=== PATIENT | female | born 1940 | race Caucasian/White ===

== ENCOUNTER 2017-06-10 09:40 | Inpatient (IN) | payer MEDICARE, OTHER ==
[2017-06-09 11:34] LABS: BASOPHILS # (AUTO) 0.1 X10'3 (0-0.2); BASOPHILS % (AUTO) 0.8 % (0-1); EOSINOPHILS # (AUTO) 0.2 X10'3 (0-0.9); EOSINOPHILS % (AUTO) 3.7 % (0-6); LYMPHOCYTES # (AUTO) 1.9 X10'3 (1.1-4.8); LYMPHOCYTES % (AUTO) 30.5 % (21-51); MEAN CORPUSCULAR HEMOGLOBIN 30.2 PG (27.0-31.0); MEAN CORPUSCULAR HGB CONC 33.5 % (33.0-36.5); MEAN CORPUSCULAR VOLUME 90.1 FL (78-98); MEAN PLATELET VOLUME 8.4 FL (7.4-10.4); MONOCYTES # (AUTO) 0.5 X10'3 (0-0.9); MONOCYTES % (AUTO) 7.4 % (2-12); NEUTROPHILS # (AUTO) 3.6 X10'3 (1.8-7.7); NEUTROPHILS % (AUTO) 57.6 % (42-75); PRE OP HEMATOCRIT 37.4 % (35.0-45.0); PRE OP HEMOGLOBIN 12.5 g/dL (12.0-16.0); PRE OP PLATELET COUNT 255 X10'3 (140-440); RED BLOOD COUNT 4.15 X10'6 (4.20-5.60); RED CELL DISTRIBUTION WIDTH 13.3 % (11.5-14.5)
[2017-06-09 11:52] LABS: ALBUMIN/GLOBULIN RATIO 1.4 (1.1-1.5); ALKALINE PHOSPHATASE 71 IU/L (46-116); BLOOD UREA NITROGEN 27 MG/DL (7-18); CALCIUM 9.5 MG/DL (8.5-10.1); CHLORIDE 105 MMOL/L (99-107); PRE OP ALT 20 U/L (30-65); PRE OP ANION GAP 12 (8-16); PRE OP AST 22 U/L (10-37); PRE OP BILIRUB, TOTAL 0.4 MG/DL (0.0-1.0); PRE OP GLUCOSE 107 MG/DL (70-104); PRE OP POTASSIUM 4.1 MMOL/L (3.4-5.1); PRE OP SODIUM 143 MMOL/L (135-145); TOTAL PROTEIN 6.8 G/DL (6.4-8.2); eGFR 54 ML/MIN
[2017-06-09 12:11] LABS: HEMOGLOBIN A1C 6.1 % (4.5-6.2)
[~2017-06-10] VITALS: Ht 157.5 cm; Wt 54.2 kg
[2017-06-10] VITALS (17 sets, daily range): BP systolic 111–141; BP diastolic 62–74
[~2017-06-10 09:40] MED LIST: CELE-193 PO; CHOL2000 PO; CYAN25006 SL; DICY10CA88 PO; DIPH-522 PO; FERR325T35 PO; LAMO100T2 PO; METF500T PO; MULT-38 PO; PANT-47 PO; SUCR1TAB PO; TRAZ-143 PO; VANCOMYCIN INJ 1000 MG in NORMAL SALINE 250ml IV.SOLN IV ONE; VENL-190 PO; ceFAZolin 2gm in dextrose, iso 100 ML IV ONE; famotidine 20mg tablet PO ONE; sevoflurane 250ml liquid IH ONE
[2017-06-10] MEDS ORDERED: LIDOcaine 1% (10mg/ml) 2ml vial ONE (11:42)
[2017-06-10] MEDS: ringers solution, lacted 1,000 ML IV SCH ×3 (11:50→17:12)
[2017-06-10] MEDS ORDERED: ketorolac trometh. 30mg/ml inj. ONE (13:03)
[2017-06-10] MEDS ORDERED: ROPIVAcaine 0.5% (5mg/ml) 30ml vial ONE ×2 (13:03→13:30)
[2017-06-10] MEDS ORDERED: vancomycin 1,000mg inj ONE (13:03)
[2017-06-10] MEDS ORDERED: fentaNYL/PF 50MCG/1 ML 2ML syringe ONE (13:32)
[2017-06-10] MEDS ORDERED: midazolam 2 mg/2 ml injection ONE (13:33)
[2017-06-10] MEDS ORDERED: propofol inj 20 ML IV ONE (13:38)
[2017-06-10] MEDS ORDERED: labetalol 5mg/ml 20ml inj. IV PRN (14:35)
[2017-06-10] MEDS ORDERED: ondansetron/PF 4mg/2ml inj IV PRN ×2 (14:35→15:45)
[2017-06-10] MEDS ORDERED: proCHLORperazine 10 MG/2 ml inj IV PRN (14:35)
[2017-06-10] MEDS ORDERED: meperidine/PF 25mg/ml syringe IV PRN ×3 (14:35)
[2017-06-10] MEDS ORDERED: ringers solution, lacted 1,000 ML IV SCH (14:35)
[2017-06-10] MEDS ORDERED: oxyCODONE IR 5mg (immed. release) tablet PO PRN (15:45)
[2017-06-10] MEDS ORDERED: bisacodyl 10mg suppository rectal RC PRN (15:45)
[2017-06-10] MEDS ORDERED: diphenoxylate/atropine tablet (Lomotil) PO PRN (15:45)
[2017-06-10] MEDS ORDERED: diphenhydrAMINE 25mg capsule PO PRN ×2 (15:45)
[2017-06-10] MEDS ORDERED: dicyclomine 10 MG capsule PO PRN (15:45)
[2017-06-10] MEDS ORDERED: magnesium hydroxide 30ml (MOM) UD suspension PO PRN (15:45)
[2017-06-10] MEDS ORDERED: HYDROmorphone 1 mg/ml syringe IV PRN ×2 (15:45)
[2017-06-10] MEDS ORDERED: acetaminophen 325mg tablet PO PRN (15:45)
[2017-06-10 16:04] LABS: APPEARANCE,SYNOVIAL FLUID CLOUDY; COLOR,SYNOVIAL FLUID OTHER; SYN RBC 11075 /CU MM (0); SYN WBC 118 /CU MM (0-200)
[2017-06-10] MEDS: cefazolin 1gm/NS 100mL 100 ML IV SCH ×2 (17:09→23:30)
[2017-06-10] MEDS: potassium cl 20mEq in 1/2 NS 1,000 ML IV SCH ×2 (17:09→23:42)
[2017-06-10] MEDS: oxyCODONE IR 5mg (immed. release) tablet PO PRN ×2 (17:18→22:39)
[2017-06-10] MEDS ORDERED: TRANEXAMIC ACID IV ONE (18:45)
[2017-06-10] MEDS ORDERED: NORMAL SALINE IV ONE (18:45)
[2017-06-10] MEDS: metFORMIN 500mg tablet PO SCH (19:52)
[2017-06-10] MEDS: acetaminophen 325mg tablet PO SCH (19:52)
[2017-06-10] MEDS: ketorolac tromethamine 15mg/ml inj. IV SCH (19:53)
[2017-06-10] MEDS ORDERED: vancomycin/NS 1 GM ADD-VANTAGE 250 ML IV SCH (20:00)
[2017-06-10] MEDS ORDERED: celeCOXIB 100mg capsule PO SCH (20:00)
[2017-06-10] MEDS: gabapentin 300mg capsule PO SCH (22:39)
[2017-06-10] MEDS: lamoTRIgine 100mg tablet PO SCH (22:39)
[2017-06-10] MEDS: traZODone 50mg tablet PO SCH (22:39)
[2017-06-10] MEDS: sennosides 8.6mg tablet PO SCH (22:40)
[2017-06-11] MEDS: ketorolac tromethamine 15mg/ml inj. IV SCH ×4 (01:44→19:50)
[2017-06-11] MEDS: acetaminophen 325mg tablet PO SCH ×4 (01:46→19:51)
[2017-06-11 02:00] VITALS: BP 119/65
[2017-06-11] MEDS: potassium cl 20mEq in 1/2 NS 1,000 ML IV SCH ×3 (04:32→23:42)
[2017-06-11] MEDS: oxyCODONE IR 5mg (immed. release) tablet PO PRN ×3 (05:47→15:53)
[2017-06-11 06:00] VITALS: BP 101/59
[2017-06-11 06:20] LABS: BASOPHILS % (AUTO) 0.5 % (0-1); EOSINOPHILS # (AUTO) 0.3 X10'3 (0-0.9); EOSINOPHILS % (AUTO) 4.7 % (0-6); HEMATOCRIT 31.2 % (35.0-45.0); HEMOGLOBIN 10.3 g/dl (12.0-16.0); LYMPHOCYTES # (AUTO) 1.8 X10'3 (1.1-4.8); LYMPHOCYTES % (AUTO) 29.6 % (21-51); MEAN CORPUSCULAR HEMOGLOBIN 30.1 PG (27.0-31.0); MEAN CORPUSCULAR VOLUME 91.3 FL (78-98); MEAN PLATELET VOLUME 8.4 FL (7.4-10.4); MONOCYTES # (AUTO) 0.4 X10'3 (0-0.9); MONOCYTES % (AUTO) 6.8 % (2-12); NEUTROPHILS # (AUTO) 3.5 X10'3 (1.8-7.7); NEUTROPHILS % (AUTO) 58.4 % (42-75); PLATELET COUNT 199 X10'3 (140-440); RED BLOOD COUNT 3.41 X10'6 (4.20-5.60); RED CELL DISTRIBUTION WIDTH 13.1 % (11.5-14.5); WHITE BLOOD COUNT 6.1 X10'3 (4.5-11.0)
[2017-06-11 06:48] LABS: ANION GAP 9 (8-16); CHLORIDE 106 MMOL/L (99-107); SODIUM 140 MMOL/L (135-145); TOTAL CARBON DIOXIDE 24.6 MMOL/L (24-32)
[2017-06-11] MEDS ORDERED: celeCOXIB 100mg capsule PO SCH (08:00)
[2017-06-11] MEDS: aspirin 325mg tablet PO SCH (08:25)
[2017-06-11] MEDS: vitamin D (cholecalciferol) 1,000 unit tablet PO SCH (08:25)
[2017-06-11] MEDS: gabapentin 300mg capsule PO SCH ×3 (08:25→19:51)
[2017-06-11] MEDS: sucralfate 1 gm tablet PO SCH (08:25)
[2017-06-11] MEDS: pantoprazole 40mg Tablet.DR PO SCH (08:25)
[2017-06-11] MEDS: metFORMIN 500mg tablet PO SCH ×2 (08:25→19:50)
[2017-06-11] MEDS: ferrous sulfate 325mg tablet PO SCH (08:25)
[2017-06-11] MEDS: multivitamins, therapeutics tablet PO SCH (08:26)
[2017-06-11] MEDS: venlafaxine XR 75mg capsule (Q24H) PO SCH (08:26)
[2017-06-11] MEDS: cyanocobalamin 500mcg tablet PO SCH ×2 (08:26→08:32)
[2017-06-11 10:23] VITALS: BP 98/48
[2017-06-11 14:00] VITALS: BP 104/58
[2017-06-11 18:00] VITALS: BP 108/58
[2017-06-11] MEDS: lamoTRIgine 100mg tablet PO SCH (19:51)
[2017-06-11] MEDS: traZODone 50mg tablet PO SCH (19:51)
[2017-06-11] MEDS: sennosides 8.6mg tablet PO SCH (19:55)
[2017-06-11 22:00] VITALS: BP 111/60
[2017-06-12] MEDS: ketorolac tromethamine 15mg/ml inj. IV SCH (01:46)
[2017-06-12] MEDS: acetaminophen 325mg tablet PO SCH ×3 (01:51→13:17)
[2017-06-12] MEDS: oxyCODONE IR 5mg (immed. release) tablet PO PRN ×4 (05:00→17:44)
[2017-06-12 06:00] VITALS: BP 125/61
[2017-06-12] MEDS: potassium cl 20mEq in 1/2 NS 1,000 ML IV SCH (06:46)
[2017-06-12 07:04] LABS: BASOPHILS % (AUTO) 0.2 % (0-1); EOSINOPHILS # (AUTO) 0.4 X10'3 (0-0.9); EOSINOPHILS % (AUTO) 6.6 % (0-6); HEMATOCRIT 30.4 % (35.0-45.0); HEMOGLOBIN 10.2 g/dl (12.0-16.0); LYMPHOCYTES % (AUTO) 17.4 % (21-51); MEAN CORPUSCULAR HEMOGLOBIN 30.5 PG (27.0-31.0); MEAN CORPUSCULAR HGB CONC 33.7 % (33.0-36.5); MEAN CORPUSCULAR VOLUME 90.4 FL (78-98); MEAN PLATELET VOLUME 8.7 FL (7.4-10.4); MONOCYTES # (AUTO) 0.4 X10'3 (0-0.9); MONOCYTES % (AUTO) 6.3 % (2-12); NEUTROPHILS # (AUTO) 3.8 X10'3 (1.8-7.7); NEUTROPHILS % (AUTO) 69.5 % (42-75); PLATELET COUNT 183 X10'3 (140-440); RED BLOOD COUNT 3.36 X10'6 (4.20-5.60); RED CELL DISTRIBUTION WIDTH 13.5 % (11.5-14.5); WHITE BLOOD COUNT 5.5 X10'3 (4.5-11.0)
[2017-06-12] MEDS: pantoprazole 40mg Tablet.DR PO SCH (08:28)
[2017-06-12] MEDS: multivitamins, therapeutics tablet PO SCH (08:28)
[2017-06-12] MEDS: metFORMIN 500mg tablet PO SCH ×2 (08:28→20:04)
[2017-06-12] MEDS: ferrous sulfate 325mg tablet PO SCH (08:28)
[2017-06-12] MEDS: venlafaxine XR 75mg capsule (Q24H) PO SCH (08:28)
[2017-06-12] MEDS: sucralfate 1 gm tablet PO SCH (08:28)
[2017-06-12] MEDS: vitamin D (cholecalciferol) 1,000 unit tablet PO SCH (08:29)
[2017-06-12] MEDS: aspirin 325mg tablet PO SCH (08:29)
[2017-06-12] MEDS: gabapentin 300mg capsule PO SCH ×3 (08:29→20:03)
[2017-06-12] MEDS: cyanocobalamin 500mcg tablet PO SCH (08:30)
[2017-06-12 11:00] VITALS: BP 122/65
[2017-06-12 18:00] VITALS: BP 142/75
[2017-06-12] MEDS: sennosides 8.6mg tablet PO SCH (19:52)
[2017-06-12] MEDS: lamoTRIgine 100mg tablet PO SCH (20:04)
[2017-06-12] MEDS: traZODone 50mg tablet PO SCH (20:05)
[2017-06-12] MEDS: celeCOXIB 100mg capsule PO SCH (20:05)
[2017-06-12 22:00] VITALS: BP 123/69
[2017-06-13] MEDS: oxyCODONE IR 5mg (immed. release) tablet PO PRN ×2 (04:37→18:44)
[2017-06-13 05:53] LABS: BASOPHILS % (AUTO) 0.5 % (0-1); EOSINOPHILS # (AUTO) 0.3 X10'3 (0-0.9); EOSINOPHILS % (AUTO) 7.2 % (0-6); HEMATOCRIT 30.2 % (35.0-45.0); HEMOGLOBIN 10.2 g/dl (12.0-16.0); LYMPHOCYTES # (AUTO) 1.1 X10'3 (1.1-4.8); MEAN CORPUSCULAR HEMOGLOBIN 30.2 PG (27.0-31.0); MEAN CORPUSCULAR HGB CONC 33.8 % (33.0-36.5); MEAN CORPUSCULAR VOLUME 89.5 FL (78-98); MEAN PLATELET VOLUME 8.7 FL (7.4-10.4); MONOCYTES # (AUTO) 0.4 X10'3 (0-0.9); NEUTROPHILS # (AUTO) 2.2 X10'3 (1.8-7.7); NEUTROPHILS % (AUTO) 55.3 % (42-75); PLATELET COUNT 183 X10'3 (140-440); RED BLOOD COUNT 3.37 X10'6 (4.20-5.60); RED CELL DISTRIBUTION WIDTH 13.2 % (11.5-14.5)
[2017-06-13 06:00] VITALS: BP 124/72
[2017-06-13] MEDS: sucralfate 1 gm tablet PO SCH (08:25)
[2017-06-13] MEDS: celeCOXIB 100mg capsule PO SCH ×2 (08:26→20:02)
[2017-06-13] MEDS: venlafaxine XR 75mg capsule (Q24H) PO SCH (08:27)
[2017-06-13] MEDS: metFORMIN 500mg tablet PO SCH ×2 (08:28→20:01)
[2017-06-13] MEDS: ferrous sulfate 325mg tablet PO SCH (08:28)
[2017-06-13] MEDS: gabapentin 300mg capsule PO SCH ×3 (08:28→20:02)
[2017-06-13] MEDS: pantoprazole 40mg Tablet.DR PO SCH (08:29)
[2017-06-13] MEDS: cyanocobalamin 500mcg tablet PO SCH (08:29)
[2017-06-13] MEDS: multivitamins, therapeutics tablet PO SCH (08:29)
[2017-06-13] MEDS: aspirin 325mg tablet PO SCH (08:30)
[2017-06-13] MEDS: vitamin D (cholecalciferol) 1,000 unit tablet PO SCH (08:31)
[2017-06-13 10:00] VITALS: BP 130/73
[2017-06-13 18:00] VITALS: BP 147/71
[2017-06-13] MEDS: lamoTRIgine 100mg tablet PO SCH (20:01)
[2017-06-13] MEDS: traZODone 50mg tablet PO SCH (20:02)
[2017-06-13] MEDS: sennosides 8.6mg tablet PO SCH (20:05)
[2017-06-13 22:00] VITALS: BP 127/64
[2017-06-14] MEDS: oxyCODONE IR 5mg (immed. release) tablet PO PRN (04:37)
[2017-06-14 06:00] VITALS: BP 132/66
[2017-06-14] MEDS: ferrous sulfate 325mg tablet PO SCH (09:17)
[2017-06-14] MEDS: celeCOXIB 100mg capsule PO SCH (09:17)
[2017-06-14] MEDS: aspirin 325mg tablet PO SCH (09:17)
[2017-06-14] MEDS: vitamin D (cholecalciferol) 1,000 unit tablet PO SCH (09:17)
[2017-06-14] MEDS: cyanocobalamin 500mcg tablet PO SCH (09:17)
[2017-06-14] MEDS: gabapentin 300mg capsule PO SCH (09:17)
[2017-06-14] MEDS: venlafaxine XR 75mg capsule (Q24H) PO SCH (09:17)
[2017-06-14] MEDS: multivitamins, therapeutics tablet PO SCH (09:17)
[2017-06-14] MEDS: metFORMIN 500mg tablet PO SCH (09:18)
[2017-06-14] MEDS: pantoprazole 40mg Tablet.DR PO SCH (09:18)
== END 2017-06-14 10:13 | DRG 483 ==
LOC: EDSTATUS 12:00 → PAS IN 13:01 → EDSTATUS 15:00 → ORTHO 4S 17:19
PROVIDERS: ADMIT Orthopaedic Surgery; ATTEND Orthopaedic Surgery
PROC: 0RPK0JZ Removal of Synthetic Substitute from Left Shoulder Joint, Open Approach (ICD-10-PCS; 2017-06-10)
PROC: 0RRK00Z Replacement of Left Shoulder Joint with Reverse Ball and Socket Synthetic Substitute, Open Approach (ICD-10-PCS; principal; 2017-06-10 13:31)
DX: T84.018A Broken internal joint prosthesis, other site, initial encounter (principal); D62 Acute posthemorrhagic anemia; E11.9 Type 2 diabetes mellitus without complications; K21.9 Gastro-esophageal reflux disease without esophagitis; M75.122 Complete rotator cuff tear or rupture of left shoulder, not specified as traumatic; F32.9 Major depressive disorder, single episode, unspecified; G89.29 Other chronic pain; Z60.2 Problems related to living alone; M19.012 Primary osteoarthritis, left shoulder; Y83.9 Surgical procedure, unspecified as the cause of abnormal reaction of the patient, or of later complication, without mention of misadventure at the time of the procedure; Z88.1 Allergy status to other antibiotic agents; Y92.89 Other specified places as the place of occurrence of the external cause
CPT/HCPCS: 36415; 80051; 80053; 82948; 83036; 85025; 87070; 87075; 88305; 88331; 89051; 93005; 97110; 97116; 97161; 97530; A6253; J0690; J1170; J1885; J2250; J2704; J2795; J3010; J3370; J3490; J7030; J7120

== ENCOUNTER 2018-03-07 09:53 | Inpatient (IN) | payer MEDICARE, OTHER ==
[2018-03-01 11:15] LABS: BASOPHILS % (AUTO) 0.9 % (0-1); EOSINOPHILS # (AUTO) 0.2 X10'3 (0-0.9); EOSINOPHILS % (AUTO) 3.5 % (0-6); LYMPHOCYTES # (AUTO) 1.3 X10'3 (1.1-4.8); LYMPHOCYTES % (AUTO) 25.4 % (21-51); MEAN CORPUSCULAR HEMOGLOBIN 30.3 PG (27.0-31.0); MEAN CORPUSCULAR HGB CONC 33.5 % (33.0-36.5); MEAN CORPUSCULAR VOLUME 90.4 FL (78-98); MEAN PLATELET VOLUME 8.5 FL (7.4-10.4); MONOCYTES # (AUTO) 0.4 X10'3 (0-0.9); MONOCYTES % (AUTO) 7.4 % (2-12); NEUTROPHILS % (AUTO) 62.8 % (42-75); PRE OP HEMATOCRIT 36.9 % (35.0-45.0); PRE OP HEMOGLOBIN 12.3 g/dL (12.0-16.0); PRE OP PLATELET COUNT 243 X10'3 (140-440); RED BLOOD COUNT 4.08 X10'6 (4.20-5.60); RED CELL DISTRIBUTION WIDTH 12.1 % (11.5-14.5)
[2018-03-01 11:29] LABS: ALBUMIN 3.6 G/DL (3.4-5.0); ALBUMIN/GLOBULIN RATIO 1.1 (1.1-1.5); ALKALINE PHOSPHATASE 80 IU/L (46-116); BLOOD UREA NITROGEN 22 MG/DL (7-18); BUN/CREATININE RATIO 20.6 (6.6-38.0); CALCIUM 8.8 MG/DL (8.5-10.1); CHLORIDE 101 MMOL/L (99-107); CREATININE 1.07 MG/DL (0.40-0.90); PRE OP ALT 24 U/L (30-65); PRE OP ANION GAP 10 (8-16); PRE OP AST 22 U/L (10-37); PRE OP BILIRUB, TOTAL 0.2 MG/DL (0.0-1.0); PRE OP GLUCOSE 141 MG/DL (70-104); PRE OP POTASSIUM 3.8 MMOL/L (3.4-5.1); PRE OP SODIUM 140 MMOL/L (135-145); TOTAL CARBON DIOXIDE 29.4 MMOL/L (24-32); TOTAL PROTEIN 6.8 G/DL (6.4-8.2); eGFR 50 ML/MIN
[2018-03-01 11:38] LABS: HEMOGLOBIN A1C 6.3 % (4.5-6.2)
[2018-03-07] VITALS (14 sets, daily range): BP systolic 112–139; BP diastolic 62–82
[~2018-03-07] VITALS: Ht 157.5 cm; Wt 50.8 kg
[~2018-03-07 09:53] MED LIST changes: +ALBU6.7H INH; -CHOL2000 PO; -CYAN25006 SL; +NORMAL SALINE IV ONE; +TRANEXAMIC ACID IV ONE; -TRAZ-143 PO; +TRAZ-218 PO; -ceFAZolin 2gm in dextrose, iso 100 ML IV ONE; +cefazolin/dext.iso 2gm/100 ML IV ONE; +ringers solution, lacted 1,000 ML IV SCH; -sevoflurane 250ml liquid IH ONE
[2018-03-07] MEDS ORDERED: ROPIVAcaine 0.5% (5mg/ml) 30ml vial ONE ×3 (14:07→17:42)
[2018-03-07] MEDS ORDERED: vancomycin 1,000mg inj ONE (14:07)
[2018-03-07] MEDS ORDERED: ketorolac trometh. 30mg/ml inj. ONE (14:07)
[2018-03-07] MEDS ORDERED: tetracaine 1% (10mg/ml) pres. free inj. ONE (15:35)
[2018-03-07] MEDS ORDERED: fentaNYL/PF 50MCG/1 ML 2ML syringe ONE (15:38)
[2018-03-07] MEDS ORDERED: MIDAZolam 5mg/5ml vial ONE (15:38)
[2018-03-07] MEDS ORDERED: propofol inj 20 ML IV ONE ×2 (16:48)
[2018-03-07] MEDS ORDERED: morphine 4 MG/ML inj SYRINge IV PRN ×2 (16:50)
[2018-03-07] MEDS ORDERED: ringers solution, lacted 1,000 ML IV SCH (16:50)
[2018-03-07] MEDS ORDERED: meperidine/PF 25mg/ml syringe IV PRN ×3 (16:50)
[2018-03-07] MEDS ORDERED: ondansetron/PF 4mg/2ml inj IV PRN ×2 (16:50→18:05)
[2018-03-07] MEDS ORDERED: proCHLORperazine 10 MG/2 ml inj IV PRN (16:50)
[2018-03-07] MEDS ORDERED: HYDROmorphone 1 mg/ml syringe IV PRN ×2 (18:05)
[2018-03-07] MEDS ORDERED: traZODone 50mg tablet PO PRN (18:05)
[2018-03-07] MEDS ORDERED: magnesium hydroxide 30ml (MOM) UD suspension PO PRN (18:05)
[2018-03-07] MEDS ORDERED: diphenhydrAMINE 25mg capsule PO PRN ×2 (18:05)
[2018-03-07] MEDS ORDERED: diphenoxylate/atropine tablet (Lomotil) PO PRN (18:05)
[2018-03-07] MEDS ORDERED: oxyCODONE IR 5mg (immed. release) tablet PO PRN (18:05)
[2018-03-07] MEDS ORDERED: acetaminophen 325mg tablet PO PRN (18:05)
[2018-03-07] MEDS ORDERED: bisacodyl 10mg suppository rectal RC PRN (18:05)
[2018-03-07] MEDS ORDERED: vancomycin/NS 1 GM ADD-VANTAGE 250 ML IV SCH (20:00)
[2018-03-07] MEDS ORDERED: non-formulary drug (Albuterol Sulfate (Proventil Hfa) 2 PUFFS) INH SCH (20:00)
[2018-03-07] MEDS: potassium cl 20mEq in 1/2 NS 1,000 ML IV SCH (20:45)
[2018-03-07] MEDS: acetaminophen 325mg tablet PO SCH (20:48)
[2018-03-07] MEDS: lamoTRIgine 100mg tablet PO SCH (20:48)
[2018-03-07] MEDS: metFORMIN 500mg tablet PO SCH (20:48)
[2018-03-07] MEDS: gabapentin 300mg capsule PO SCH (20:48)
[2018-03-07] MEDS: ketorolac tromethamine 15mg/ml inj. IV SCH (20:49)
[2018-03-07] MEDS: sennosides 8.6mg tablet PO SCH (21:00)
[2018-03-07] MEDS: albuterol 2.5 MG/3 ML nebule NEB SCH (21:00)
[2018-03-07] MEDS ORDERED: tranexamic acid inj. 500 MG in normal saline 100ml IV soln 100 ML IV ONE (21:05)
[2018-03-07] MEDS: oxyCODONE IR 5mg (immed. release) tablet PO PRN (21:53)
[2018-03-08] MEDS: ceFAZolin 1GM/D5W- ADD-VANTAGE 50 ML IV SCH ×2 (00:07→07:22)
[2018-03-08 02:00] VITALS: BP 102/56
[2018-03-08] MEDS: ketorolac tromethamine 15mg/ml inj. IV SCH ×3 (02:00→13:26)
[2018-03-08] MEDS: acetaminophen 325mg tablet PO SCH ×4 (02:01→19:50)
[2018-03-08] MEDS: potassium cl 20mEq in 1/2 NS 1,000 ML IV SCH ×3 (02:02→17:02)
[2018-03-08] MEDS: oxyCODONE IR 5mg (immed. release) tablet PO PRN ×4 (02:02→19:51)
[2018-03-08] MEDS: albuterol 2.5 MG/3 ML nebule NEB SCH ×4 (02:25→20:34)
[2018-03-08 06:25] LABS: BASOPHILS % (AUTO) 0.3 % (0-1); EOSINOPHILS # (AUTO) 0.1 X10'3 (0-0.9); EOSINOPHILS % (AUTO) 1.1 % (0-6); HEMATOCRIT 29.1 % (35.0-45.0); HEMOGLOBIN 9.6 g/dl (12.0-16.0); LYMPHOCYTES # (AUTO) 0.5 X10'3 (1.1-4.8); LYMPHOCYTES % (AUTO) 4.1 % (21-51); MEAN CORPUSCULAR HEMOGLOBIN 29.6 PG (27.0-31.0); MEAN CORPUSCULAR HGB CONC 32.9 % (33.0-36.5); MEAN PLATELET VOLUME 8.6 FL (7.4-10.4); MONOCYTES # (AUTO) 0.9 X10'3 (0-0.9); MONOCYTES % (AUTO) 7.8 % (2-12); NEUTROPHILS # (AUTO) 10.2 X10'3 (1.8-7.7); NEUTROPHILS % (AUTO) 86.7 % (42-75); PLATELET COUNT 197 X10'3 (140-440); RED BLOOD COUNT 3.23 X10'6 (4.20-5.60); RED CELL DISTRIBUTION WIDTH 12.7 % (11.5-14.5); WHITE BLOOD COUNT 11.8 X10'3 (4.5-11.0)
[2018-03-08 06:32] LABS: ANION GAP 7 (8-16); CHLORIDE 102 MMOL/L (99-107); POTASSIUM 4.1 MMOL/L (3.5-5.1); SODIUM 136 MMOL/L (135-145)
[2018-03-08 06:46] VITALS: BP 115/52
[2018-03-08] MEDS: ferrous sulfate 325mg tablet PO SCH (07:22)
[2018-03-08] MEDS: gabapentin 300mg capsule PO SCH ×3 (07:22→19:50)
[2018-03-08] MEDS: multivitamins, therapeutics tablet PO SCH (07:22)
[2018-03-08] MEDS: metFORMIN 500mg tablet PO SCH ×2 (07:22→19:50)
[2018-03-08] MEDS: pantoprazole 40mg Tablet.DR PO SCH (07:22)
[2018-03-08] MEDS: venlafaxine XR 75mg capsule (Q24H) PO SCH (07:23)
[2018-03-08] MEDS: sucralfate 1 gm tablet PO SCH (07:23)
[2018-03-08] MEDS: dicyclomine 10 MG capsule PO PRN (07:26)
[2018-03-08] MEDS ORDERED: celeCOXIB 100mg capsule PO SCH (08:00)
[2018-03-08] MEDS ORDERED: non-formulary drug (Multivitamin (Daily Multiple Vitamin) 1 TAB) PO SCH (08:00)
[2018-03-08] MEDS: aspirin 325mg tablet PO SCH (08:27)
[2018-03-08 10:00] VITALS: BP 114/57
[2018-03-08 18:00] VITALS: BP 106/53
[2018-03-08] MEDS: celeCOXIB 100mg capsule PO SCH (19:50)
[2018-03-08] MEDS: lamoTRIgine 100mg tablet PO SCH (19:51)
[2018-03-08] MEDS: sennosides 8.6mg tablet PO SCH (21:00)
[2018-03-08 22:00] VITALS: BP 111/54
[2018-03-09] MEDS: acetaminophen 325mg tablet PO SCH ×3 (02:00→15:24)
[2018-03-09] MEDS: potassium cl 20mEq in 1/2 NS 1,000 ML IV SCH ×2 (02:02→10:02)
[2018-03-09] MEDS: albuterol 2.5 MG/3 ML nebule NEB SCH ×4 (02:38→20:24)
[2018-03-09] MEDS: oxyCODONE IR 5mg (immed. release) tablet PO PRN ×4 (04:04→20:42)
[2018-03-09 05:46] LABS: BASOPHILS % (AUTO) 0.5 % (0-1); EOSINOPHILS # (AUTO) 0.2 X10'3 (0-0.9); EOSINOPHILS % (AUTO) 4.8 % (0-6); HEMOGLOBIN 8.4 g/dl (12.0-16.0); LYMPHOCYTES # (AUTO) 1.1 X10'3 (1.1-4.8); LYMPHOCYTES % (AUTO) 25.8 % (21-51); MEAN CORPUSCULAR HEMOGLOBIN 30.1 PG (27.0-31.0); MEAN CORPUSCULAR HGB CONC 33.7 % (33.0-36.5); MEAN CORPUSCULAR VOLUME 89.2 FL (78-98); MEAN PLATELET VOLUME 8.4 FL (7.4-10.4); MONOCYTES # (AUTO) 0.4 X10'3 (0-0.9); MONOCYTES % (AUTO) 8.4 % (2-12); NEUTROPHILS # (AUTO) 2.6 X10'3 (1.8-7.7); NEUTROPHILS % (AUTO) 60.5 % (42-75); PLATELET COUNT 155 X10'3 (140-440); RED CELL DISTRIBUTION WIDTH 12.8 % (11.5-14.5); WHITE BLOOD COUNT 4.4 X10'3 (4.5-11.0)
[2018-03-09 06:00] VITALS: BP 115/63
[2018-03-09] MEDS: celeCOXIB 100mg capsule PO SCH ×2 (07:44→20:34)
[2018-03-09] MEDS: sucralfate 1 gm tablet PO SCH (07:44)
[2018-03-09] MEDS: metFORMIN 500mg tablet PO SCH ×2 (07:47→20:34)
[2018-03-09] MEDS: multivitamins, therapeutics tablet PO SCH (07:47)
[2018-03-09] MEDS: ferrous sulfate 325mg tablet PO SCH (07:47)
[2018-03-09] MEDS: gabapentin 300mg capsule PO SCH ×3 (07:47→20:34)
[2018-03-09] MEDS: venlafaxine XR 75mg capsule (Q24H) PO SCH (07:47)
[2018-03-09] MEDS: pantoprazole 40mg Tablet.DR PO SCH (07:47)
[2018-03-09] MEDS: aspirin 325mg tablet PO SCH (07:49)
[2018-03-09] MEDS: dicyclomine 10 MG capsule PO PRN (07:52)
[2018-03-09 08:22] VITALS: BP 122/63
[2018-03-09 10:00] VITALS: BP 109/57
[2018-03-09 18:00] VITALS: BP 119/54
[2018-03-09] MEDS ORDERED: acetaminophen 325mg tablet PO PRN (18:05)
[2018-03-09] MEDS: lamoTRIgine 100mg tablet PO SCH (20:34)
[2018-03-09] MEDS: sennosides 8.6mg tablet PO SCH (20:34)
[2018-03-09 22:00] VITALS: BP 111/57
[2018-03-10] MEDS: oxyCODONE IR 5mg (immed. release) tablet PO PRN ×3 (00:24→09:27)
[2018-03-10] MEDS: albuterol 2.5 MG/3 ML nebule NEB SCH ×2 (03:00→08:58)
[2018-03-10 06:00] VITALS: BP 134/63
[2018-03-10] MEDS: metFORMIN 500mg tablet PO SCH (07:58)
[2018-03-10] MEDS: ferrous sulfate 325mg tablet PO SCH (07:58)
[2018-03-10] MEDS: venlafaxine XR 75mg capsule (Q24H) PO SCH (07:58)
[2018-03-10] MEDS: celeCOXIB 100mg capsule PO SCH (07:58)
[2018-03-10] MEDS: sucralfate 1 gm tablet PO SCH (07:58)
[2018-03-10] MEDS: gabapentin 300mg capsule PO SCH ×2 (07:59→13:00)
[2018-03-10] MEDS: aspirin 325mg tablet PO SCH (07:59)
[2018-03-10] MEDS: pantoprazole 40mg Tablet.DR PO SCH (07:59)
[2018-03-10] MEDS: multivitamins, therapeutics tablet PO SCH (07:59)
[2018-03-10 08:20] LABS: BASOPHILS % (AUTO) 0.2 % (0-1); EOSINOPHILS # (AUTO) 0.3 X10'3 (0-0.9); EOSINOPHILS % (AUTO) 4.9 % (0-6); HEMATOCRIT 28.2 % (35.0-45.0); HEMOGLOBIN 9.5 g/dl (12.0-16.0); LYMPHOCYTES # (AUTO) 0.9 X10'3 (1.1-4.8); LYMPHOCYTES % (AUTO) 17.7 % (21-51); MEAN CORPUSCULAR HEMOGLOBIN 29.9 PG (27.0-31.0); MEAN CORPUSCULAR HGB CONC 33.6 % (33.0-36.5); MEAN CORPUSCULAR VOLUME 89.2 FL (78-98); MEAN PLATELET VOLUME 8.8 FL (7.4-10.4); MONOCYTES # (AUTO) 0.6 X10'3 (0-0.9); MONOCYTES % (AUTO) 11.3 % (2-12); NEUTROPHILS # (AUTO) 3.5 X10'3 (1.8-7.7); NEUTROPHILS % (AUTO) 65.9 % (42-75); PLATELET COUNT 169 X10'3 (140-440); RED BLOOD COUNT 3.17 X10'6 (4.20-5.60); RED CELL DISTRIBUTION WIDTH 13.1 % (11.5-14.5); WHITE BLOOD COUNT 5.3 X10'3 (4.5-11.0)
[2018-03-10 10:00] VITALS: BP 109/57
[2018-03-10] MEDS ORDERED: oxyCODONE/APAP 10/325mg tablet PO PRN (10:55)
== END 2018-03-10 12:30 | DRG 467 ==
LOC: PAS IN 12:08 → EDSTATUS 15:00 → ORTHO 4S 19:13
PROVIDERS: ADMIT Orthopaedic Surgery; ATTEND Orthopaedic Surgery
PROC: 3E0T3BZ Introduction of Anesthetic Agent into Peripheral Nerves and Plexi, Percutaneous Approach (ICD-10-PCS; 2018-03-07)
PROC: 8E0YXBZ Computer Assisted Procedure of Lower Extremity (ICD-10-PCS; 2018-03-07)
PROC: 8E0Y0CZ Robotic Assisted Procedure of Lower Extremity, Open Approach (ICD-10-PCS; 2018-03-07)
PROC: 0SPD0JZ Removal of Synthetic Substitute from Left Knee Joint, Open Approach (ICD-10-PCS; 2018-03-07)
PROC: 0SRD0J9 Replacement of Left Knee Joint with Synthetic Substitute, Cemented, Open Approach (ICD-10-PCS; principal; 2018-03-07 15:31)
DX: M17.12 Unilateral primary osteoarthritis, left knee (principal); D62 Acute posthemorrhagic anemia; K50.90 Crohn's disease, unspecified, without complications; K21.9 Gastro-esophageal reflux disease without esophagitis; E11.9 Type 2 diabetes mellitus without complications; J44.9 Chronic obstructive pulmonary disease, unspecified; G47.30 Sleep apnea, unspecified; Z96.612 Presence of left artificial shoulder joint; M75.122 Complete rotator cuff tear or rupture of left shoulder, not specified as traumatic; M21.162 Varus deformity, not elsewhere classified, left knee; F32.9 Major depressive disorder, single episode, unspecified; Z90.710 Acquired absence of both cervix and uterus; Z90.49 Acquired absence of other specified parts of digestive tract; Z88.8 Allergy status to other drugs, medicaments and biological substances; Z79.899 Other long term (current) drug therapy; Z79.84 Long term (current) use of oral hypoglycemic drugs; Z79.01 Long term (current) use of anticoagulants; Z86.73 Personal history of transient ischemic attack (TIA), and cerebral infarction without residual deficits; Z87.891 Personal history of nicotine dependence; Z86.711 Personal history of pulmonary embolism; Z88.1 Allergy status to other antibiotic agents; Z86.14 Personal history of Methicillin resistant Staphylococcus aureus infection; Z87.11 Personal history of peptic ulcer disease
CPT/HCPCS: 36415; 80051; 80053; 82948; 83036; 85025; 87070; 94640; 94760; 97110; 97116; 97161; 97530; A6257; A7000; C1713; C1758; C1776; J0690; J1170; J1885; J2250; J2704; J2795; J3010; J3370; J7030; J7120

== ENCOUNTER 2019-06-26 09:45 | Inpatient (IN) | payer MEDICARE, OTHER ==
[~2019-06-26] VITALS: Ht 157.5 cm; Wt 56.2 kg
[~2019-06-26 09:45] MED LIST changes: -ALBU6.7H INH; +ALBU6.7H9 INH; -FERR325T35 PO; -NORMAL SALINE IV ONE; -TRANEXAMIC ACID IV ONE; -TRAZ-218 PO; +TRAZ-251 PO; -VANCOMYCIN INJ 1000 MG in NORMAL SALINE 250ml IV.SOLN IV ONE; -cefazolin/dext.iso 2gm/100 ML IV ONE; -famotidine 20mg tablet PO ONE; -ringers solution, lacted 1,000 ML IV SCH
[2019-06-26 11:48] LABS: BASOPHILS # (AUTO) 0.1 X10'3 (0-0.2); BASOPHILS % (AUTO) 1.2 % (0-1); EOSINOPHILS # (AUTO) 0.1 X10'3 (0-0.9); EOSINOPHILS % (AUTO) 2.7 % (0-6); LYMPHOCYTES # (AUTO) 1.5 X10'3 (1.1-4.8); MEAN CORPUSCULAR HEMOGLOBIN 30.6 PG (27.0-31.0); MEAN CORPUSCULAR HGB CONC 34.1 g/dL (33.0-36.5); MEAN CORPUSCULAR VOLUME 89.8 FL (78-98); MEAN PLATELET VOLUME 8.2 FL (7.4-10.4); MONOCYTES # (AUTO) 0.4 X10'3 (0-0.9); MONOCYTES % (AUTO) 7.7 % (2-12); NEUTROPHILS # (AUTO) 3.2 X10'3 (1.8-7.7); NEUTROPHILS % (AUTO) 59.4 % (42-75); PRE OP HEMATOCRIT 36.6 % (35.0-45.0); PRE OP HEMOGLOBIN 12.5 g/dL (12.0-16.0); PRE OP PLATELET COUNT 251 X10'3 (140-440); RED BLOOD COUNT 4.07 X10'6 (4.20-5.60); RED CELL DISTRIBUTION WIDTH 13.1 % (11.5-14.5)
[2019-06-26 12:01] LABS: PRE OP PROTIME 10.1 SECONDS (9.0-12.0)
[2019-06-26 12:19] LABS: ALBUMIN 3.9 G/DL (3.4-5.0); ALBUMIN/GLOBULIN RATIO 1.3 (1.1-1.5); ALKALINE PHOSPHATASE 93 IU/L (46-116); BLOOD UREA NITROGEN 29 MG/DL (7-18); BUN/CREATININE RATIO 23.8 (6.6-38.0); CHLORIDE 105 MMOL/L (99-107); CREATININE 1.22 MG/DL (0.40-0.90); PRE OP ALT 23 U/L (30-65); PRE OP ANION GAP 7 (8-16); PRE OP AST 22 U/L (10-37); PRE OP BILIRUB, TOTAL 0.2 MG/DL (0.0-1.0); PRE OP GLUCOSE 138 MG/DL (70-104); PRE OP POTASSIUM 4.1 MMOL/L (3.4-5.1); PRE OP SODIUM 140 MMOL/L (135-145); TOTAL CARBON DIOXIDE 27.8 MMOL/L (24-32); TOTAL PROTEIN 6.9 G/DL (6.4-8.2); eGFR 43 ML/MIN
[2019-06-26 12:23] LABS: HEMOGLOBIN A1C 6.3 % (4.5-6.2)
[2019-07-03] VITALS (16 sets, daily range): BP systolic 100–149; BP diastolic 49–86
[2019-07-03] MEDS ORDERED: VANCOMYCIN INJ 1000 MG in NORMAL SALINE 250ml IV.SOLN IV ONE (08:00)
[2019-07-03] MEDS ORDERED: famotidine 20mg tablet PO ONE (08:00)
[2019-07-03] MEDS ORDERED: ceFAZolin inj. 2,000 MG in dextrose 5%-water 50ml 50 ML IV ONE (08:00)
[2019-07-03] MEDS ORDERED: tranexamic acid inj. 570 MG in normal saline 100ml IV soln 100 ML IV ONE ×4 (08:00)
[2019-07-03] MEDS ORDERED: albuterol 2.5 MG/3 ML nebule NEB ONE (08:00)
[2019-07-03] MEDS ORDERED: ringers solution, lacted 1,000 ML IV SCH ×2 (08:00→11:28)
[2019-07-03] MEDS ORDERED: ketorolac trometh. 30mg/ml inj. ONE (09:45)
[2019-07-03] MEDS ORDERED: ROPIVAcaine 0.5% (5mg/ml) 30ml vial ONE ×2 (09:46→13:08)
[2019-07-03] MEDS ORDERED: morphine 4 MG/ML inj SYRINge IV PRN (11:30)
[2019-07-03] MEDS ORDERED: ondansetron/PF 4mg/2ml inj IV PRN (11:30)
[2019-07-03] MEDS ORDERED: proCHLORperazine 10 MG/2 ml inj IV PRN (11:30)
[2019-07-03] MEDS ORDERED: HYDROmorphone inj. 0.5 MG/0.5 ML DISP.SYRIN IV PRN ×3 (11:30→13:15)
[2019-07-03] MEDS ORDERED: meperidine/PF 25mg/ml syringe IV PRN (11:30)
[2019-07-03] MEDS ORDERED: morphine 2 MG/ML inj. syringe IV PRN (11:30)
[2019-07-03] MEDS ORDERED: ROPIVAcaine 0.2% (10 MG/5 ML) BOLUS INJECTION ADDCANAL PRN (11:35)
[2019-07-03] MEDS ORDERED: midazolam 2 mg/2 ml injection ONE (13:06)
[2019-07-03] MEDS ORDERED: propofol inj 20 ML IV ONE ×3 (13:07)
[2019-07-03] MEDS ORDERED: acetaminophen 325mg tablet PO PRN (13:15)
[2019-07-03] MEDS ORDERED: magnesium hydroxide 30ml (MOM) UD suspension PO PRN (13:15)
[2019-07-03] MEDS ORDERED: bisacodyl 10mg suppository rectal RC PRN (13:15)
[2019-07-03] MEDS ORDERED: tranexamic acid inj. 0 MG in normal saline 100ml IV soln 100 ML IV ONE (13:15)
[2019-07-03] MEDS ORDERED: oxyCODONE IR 5mg (immed. release) tablet PO PRN (13:15)
[2019-07-03] MEDS ORDERED: diphenhydrAMINE 25mg capsule PO PRN ×2 (13:15)
[2019-07-03] MEDS ORDERED: HYDROmorphone 1 mg/ml syringe IV PRN (13:15)
[2019-07-03] MEDS ORDERED: albuterol 2.5 MG/3 ML nebule NEB PRN (13:30)
--- NOTE | 2019-07-03 13:40 | NUR ---
Received from OR via BED , accompanied by Anesthesiologist DR BYRD and report given by Anesthesiolgist. PATIENT WAKING UP, DENIES PAIN, V/S WNL, NEUROVASCULAR CHECKS INTACT, 18G PIV LUE , ALL DRESSING TO RIGHT KNEE CDI W/ COLD POWDER PACK AND ON QUE PUMP AT 4ML/HR , FULL SENSATION AND MOVEMENT.
[2019-07-03] MEDS: ROPIVAcaine 0.2%/PF PUMP/bolus 550 ML ADDCANAL SCH (13:50)
--- NOTE | 2019-07-03 14:30 | NUR ---
PATIENT A&OX4, DENIES PAIN, V/S WNL, NEUROVASCULAR CHECKS INTACT, 18G PIV LUE , DRESSING TO RIGHT KNEE CDI W/ COLD POWDER PACK AND W/ SCD ON. F/C DRAINING CLEAR YELLOW URINE. FULL SENSATION . PATIENT TAKEN TO 4020B WITH ALL BELONGINGS AND HOOKED UP TO MONITORS IN ROOM AND REPORT GIVEN TO [employer] REFINING EQUIPMENT OPERATOR WHO HAS TAKEN OVER PATIENT CARE. ON-Q BALL AT 4ML/HR
[2019-07-03] MEDS: acetaminophen 325mg tablet PO SCH ×2 (17:00→19:39)
[2019-07-03] MEDS: ceFAZolin 1GM/D5W- ADD-VANTAGE 50 ML IV SCH ×2 (17:00→23:30)
[2019-07-03] MEDS: potassium cl 20mEq in 1/2 NS 1,000 ML IV SCH ×2 (17:01→21:11)
[2019-07-03] MEDS: oxyCODONE IR 5mg (immed. release) tablet PO PRN ×2 (17:03→23:30)
[2019-07-03] MEDS: sucralfate 1 gm tablet PO SCH ×2 (17:41→20:40)
[2019-07-03] MEDS: diphenoxylate/atropine tablet (Lomotil) PO SCH ×2 (17:41→20:40)
[2019-07-03] MEDS: metFORMIN 500mg tablet PO SCH (19:38)
[2019-07-03] MEDS ORDERED: vancomycin/NS 1 GM ADD-VANTAGE 250 ML IV SCH (20:00)
[2019-07-03] MEDS: sennosides 8.6mg tablet PO SCH (20:39)
[2019-07-03] MEDS: dicyclomine 10 MG capsule PO SCH (20:40)
[2019-07-03] MEDS: traZODone 50mg tablet PO SCH (20:40)
[2019-07-03] MEDS: lamoTRIgine 100mg tablet PO SCH (20:40)
[2019-07-04] MEDS: acetaminophen 325mg tablet PO SCH ×4 (01:33→20:00)
[2019-07-04] MEDS: oxyCODONE IR 5mg (immed. release) tablet PO PRN ×5 (03:14→20:00)
[2019-07-04 04:00] VITALS: BP 100/46
[2019-07-04] MEDS: potassium cl 20mEq in 1/2 NS 1,000 ML IV SCH ×3 (05:11→20:04)
[2019-07-04 06:00] VITALS: BP 95/46
[2019-07-04 06:25] LABS: BASOPHILS % (AUTO) 0.5 % (0-1); EOSINOPHILS # (AUTO) 0.2 X10'3 (0-0.9); EOSINOPHILS % (AUTO) 4.1 % (0-6); HEMATOCRIT 23.8 % (35.0-45.0); HEMOGLOBIN 8.3 g/dl (12.0-16.0); LYMPHOCYTES # (AUTO) 0.9 X10'3 (1.1-4.8); LYMPHOCYTES % (AUTO) 20.3 % (21-51); MEAN CORPUSCULAR HEMOGLOBIN 30.9 PG (27.0-31.0); MEAN CORPUSCULAR HGB CONC 34.9 g/dL (33.0-36.5); MEAN CORPUSCULAR VOLUME 88.6 FL (78-98); MEAN PLATELET VOLUME 8.6 FL (7.4-10.4); MONOCYTES # (AUTO) 0.3 X10'3 (0-0.9); NEUTROPHILS % (AUTO) 68.1 % (42-75); PLATELET COUNT 147 X10'3 (140-440); RED BLOOD COUNT 2.69 X10'6 (4.20-5.60); WHITE BLOOD COUNT 4.4 X10'3 (4.5-11.0)
[2019-07-04 06:29] LABS: ANION GAP 7 (8-16); CHLORIDE 106 MMOL/L (99-107); POTASSIUM 3.9 MMOL/L (3.5-5.1); SODIUM 139 MMOL/L (135-145); TOTAL CARBON DIOXIDE 25.9 MMOL/L (24-32)
--- NOTE | 2019-07-04 06:35 | NUR ---
REPORT GIVEN TO OSWALDO RASMUSSEN.
[2019-07-04] MEDS: metFORMIN 500mg tablet PO SCH ×2 (07:05→20:00)
[2019-07-04] MEDS: venlafaxine XR 75mg capsule (Q24H) PO SCH (07:06)
[2019-07-04] MEDS: sucralfate 1 gm tablet PO SCH ×4 (07:06→19:59)
[2019-07-04] MEDS: dicyclomine 10 MG capsule PO SCH ×3 (07:06→20:00)
[2019-07-04] MEDS: celeCOXIB 100mg capsule PO SCH (07:06)
[2019-07-04] MEDS: pantoprazole 40mg Tablet.DR PO SCH (07:06)
[2019-07-04] MEDS: diphenoxylate/atropine tablet (Lomotil) PO SCH ×4 (07:07→20:00)
[2019-07-04] MEDS: aspirin 325mg tablet PO SCH (09:28)
[2019-07-04 10:00] VITALS: BP 104/52
[2019-07-04] MEDS: ondansetron/PF 4mg/2ml inj IV PRN (10:29)
--- NOTE | 2019-07-04 12:36 | NUR ---
Patient refused accucheck. Last blood sugar 104 patient on metformin. Addendum: 07/04/19 at 1237 by Vanda Severino RN Amended: Links added.
--- NOTE | 2019-07-04 13:00 | NUR ---
Patient noted with nausea and vomiting. Patient stated she had difficulty swallowing and keeping food karen "I feel like I have a gas bubble that I cant get down". Patient remained alert and verbally responsive, able to communicate and throw up. Consulted with RICO Davey. Gave orders for IV reglan, IV protonix, and IV Benadryl, IV Ativan. Carried out orders. Patient claims she felt better and was able to swallow.
[2019-07-04] MEDS ORDERED: diphenhydrAMINE 50 mg/ml inj IV STA (13:04)
[2019-07-04] MEDS ORDERED: LORazepam 2 mg/ml vial IM ONE (13:05)
[2019-07-04] MEDS ORDERED: metoclopramide 5 mg/ml inj IV PRN (13:05)
[2019-07-04] MEDS ORDERED: pantoprazole 40 MG vial IV SCH (13:05)
--- NOTE | 2019-07-04 13:25 | NUR ---
Patient taking a nap, arousable and able to swallow.
[2019-07-04] MEDS ORDERED: LORazepam 2 mg/ml vial IV ONE (13:40)
--- NOTE | 2019-07-04 13:52 | NUR ---
Joint replacement consult: Pt seen by KAILEE for written/verbal high protein ed w/ RD contact information provided. Pt is agreeable to chocolate ensure puddings BIDLD; dietary notified. Will continue to monitor. Addendum: 07/04/19 at [address] Amended: Links added.
--- NOTE | 2019-07-04 15:10 | NUR ---
Patient awoke from nap. Drank some fluids and claims she feels better.
[2019-07-04 18:00] VITALS: BP 104/51
--- NOTE | 2019-07-04 18:00 | NUR ---
RECEIVED REPORT FROM SYBIL CHACON AND ASSUMED PATIENT CARE
--- NOTE | 2019-07-04 18:33 | NUR ---
Problems reprioritized. Patient report given, questions answered & plan of care reviewed with Unique CHACON.
[2019-07-04] MEDS: ROPIVAcaine 0.2%/PF PUMP/bolus 550 ML ADDCANAL SCH (18:38)
[2019-07-04] MEDS: traZODone 50mg tablet PO SCH (19:59)
[2019-07-04] MEDS: sennosides 8.6mg tablet PO SCH (20:00)
[2019-07-04] MEDS: lamoTRIgine 100mg tablet PO SCH (20:00)
[2019-07-04 22:00] VITALS: BP 110/38
[2019-07-05] MEDS: oxyCODONE IR 5mg (immed. release) tablet PO PRN ×5 (00:23→21:38)
[2019-07-05] MEDS: acetaminophen 325mg tablet PO SCH ×2 (02:00→08:12)
[2019-07-05] MEDS: potassium cl 20mEq in 1/2 NS 1,000 ML IV SCH (05:11)
[2019-07-05 06:22] LABS: BASOPHILS % (AUTO) 0.2 % (0-1); EOSINOPHILS # (AUTO) 0.2 X10'3 (0-0.9); EOSINOPHILS % (AUTO) 3.7 % (0-6); HEMATOCRIT 24.2 % (35.0-45.0); HEMOGLOBIN 8.5 g/dl (12.0-16.0); LYMPHOCYTES % (AUTO) 20.6 % (21-51); MEAN CORPUSCULAR VOLUME 88.7 FL (78-98); MEAN PLATELET VOLUME 8.3 FL (7.4-10.4); MONOCYTES # (AUTO) 0.5 X10'3 (0-0.9); MONOCYTES % (AUTO) 10.7 % (2-12); NEUTROPHILS % (AUTO) 64.8 % (42-75); PLATELET COUNT 163 X10'3 (140-440); RED BLOOD COUNT 2.73 X10'6 (4.20-5.60); RED CELL DISTRIBUTION WIDTH 13.3 % (11.5-14.5); WHITE BLOOD COUNT 4.6 X10'3 (4.5-11.0)
--- NOTE | 2019-07-05 06:30 | NUR ---
Patient in room [facility]TH[facility] 4020. Betty RN and Lyndsay RN have received report from Unique CHACON and had the opportunity to ask questions and assume patient care.
[2019-07-05] MEDS: sucralfate 1 gm tablet PO SCH ×4 (08:09→20:46)
[2019-07-05] MEDS: metFORMIN 500mg tablet PO SCH ×2 (08:10→20:46)
[2019-07-05] MEDS: aspirin 325mg tablet PO SCH (08:10)
[2019-07-05] MEDS: dicyclomine 10 MG capsule PO SCH ×3 (08:10→20:46)
[2019-07-05] MEDS: diphenoxylate/atropine tablet (Lomotil) PO SCH ×4 (08:10→20:46)
[2019-07-05] MEDS: celeCOXIB 100mg capsule PO SCH (08:10)
[2019-07-05] MEDS: venlafaxine XR 75mg capsule (Q24H) PO SCH (08:10)
[2019-07-05] MEDS: pantoprazole 40mg Tablet.DR PO SCH (08:10)
[2019-07-05 10:00] VITALS: BP 100/50
[2019-07-05] MEDS ORDERED: acetaminophen 325mg tablet PO PRN (13:15)
[2019-07-05 18:00] VITALS: BP 120/76
--- NOTE | 2019-07-05 18:00 | NUR ---
Problems reprioritized. Patient report given, questions answered & plan of care reviewed with LUISA CHACON.
[2019-07-05] MEDS: lamoTRIgine 100mg tablet PO SCH (20:46)
[2019-07-05] MEDS: traZODone 50mg tablet PO SCH (20:46)
[2019-07-05] MEDS: sennosides 8.6mg tablet PO SCH (20:49)
[2019-07-05 22:00] VITALS: BP 112/55
[2019-07-06] MEDS: oxyCODONE IR 5mg (immed. release) tablet PO PRN ×2 (03:18→07:33)
[2019-07-06 06:00] VITALS: BP 144/52
--- NOTE | 2019-07-06 06:15 | NUR ---
Patient in room [facility]TH[facility] 4020. I have received report from LUISA CHACON and had the opportunity to ask questions and assume patient care.
--- NOTE | 2019-07-06 06:23 | NUR ---
Problems reprioritized. Patient report given, questions answered & plan of care reviewed with OSWALDO Hernández.
[2019-07-06 06:59] LABS: BASOPHILS % (AUTO) 0.2 % (0-1); EOSINOPHILS # (AUTO) 0.1 X10'3 (0-0.9); EOSINOPHILS % (AUTO) 3.7 % (0-6); HEMATOCRIT 24.1 % (35.0-45.0); HEMOGLOBIN 8.4 g/dl (12.0-16.0); LYMPHOCYTES # (AUTO) 0.6 X10'3 (1.1-4.8); LYMPHOCYTES % (AUTO) 17.9 % (21-51); MEAN CORPUSCULAR HEMOGLOBIN 30.9 PG (27.0-31.0); MEAN CORPUSCULAR VOLUME 88.4 FL (78-98); MEAN PLATELET VOLUME 8.6 FL (7.4-10.4); MONOCYTES # (AUTO) 0.5 X10'3 (0-0.9); MONOCYTES % (AUTO) 14.2 % (2-12); NEUTROPHILS # (AUTO) 2.3 X10'3 (1.8-7.7); PLATELET COUNT 153 X10'3 (140-440); RED BLOOD COUNT 2.72 X10'6 (4.20-5.60); RED CELL DISTRIBUTION WIDTH 13.3 % (11.5-14.5); WHITE BLOOD COUNT 3.5 X10'3 (4.5-11.0)
[2019-07-06] MEDS: sucralfate 1 gm tablet PO SCH (07:32)
[2019-07-06] MEDS: diphenoxylate/atropine tablet (Lomotil) PO SCH (07:32)
[2019-07-06] MEDS: metFORMIN 500mg tablet PO SCH (07:32)
[2019-07-06] MEDS: pantoprazole 40mg Tablet.DR PO SCH (07:32)
[2019-07-06] MEDS: aspirin 325mg tablet PO SCH (07:32)
[2019-07-06] MEDS: venlafaxine XR 75mg capsule (Q24H) PO SCH (07:32)
[2019-07-06] MEDS: dicyclomine 10 MG capsule PO SCH (07:32)
[2019-07-06] MEDS: celeCOXIB 100mg capsule PO SCH (07:32)
[2019-07-06] MEDS: ondansetron/PF 4mg/2ml inj IV PRN (09:19)
[2019-07-06 10:00] VITALS: BP 112/54
--- NOTE | 2019-07-06 18:13 | NUR ---
Student documentation: I have reviewed and agree with all interventions, assessments performed and documented by SARTHAK TUCKER.
--- NOTE | 2019-07-06 18:14 | NUR ---
Student Medication Administration: For this medication-pass time frame, all medication were reviewed, dispensed, administered and documented per hospital policy by SARTHAK TUCKER.
== END 2019-07-06 11:30 | DRG 470 ==
LOC: INTOOBSV 07-03 06:49 → PAS IN 07-03 06:49 → OBSVTOIN 07-03 06:49 → EDSTATUS 07-03 11:15 → ORTHO 4S 07-03 14:30
PROVIDERS: ADMIT Orthopaedic Surgery; ATTEND Orthopaedic Surgery
PROC: 3E0T3BZ Introduction of Anesthetic Agent into Peripheral Nerves and Plexi, Percutaneous Approach (ICD-10-PCS; 2019-07-03)
PROC: 8E0YXBZ Computer Assisted Procedure of Lower Extremity (ICD-10-PCS; 2019-07-03)
PROC: 8E0YXCZ Robotic Assisted Procedure of Lower Extremity (ICD-10-PCS; 2019-07-03)
PROC: 0SRC069 Replacement of Right Knee Joint with Oxidized Zirconium on Polyethylene Synthetic Substitute, Cemented, Open Approach (ICD-10-PCS; principal; 2019-07-03 10:34)
DX: M17.11 Unilateral primary osteoarthritis, right knee (principal); D62 Acute posthemorrhagic anemia; E11.9 Type 2 diabetes mellitus without complications; J44.9 Chronic obstructive pulmonary disease, unspecified; Z96.652 Presence of left artificial knee joint; R13.10 Dysphagia, unspecified; F32.9 Major depressive disorder, single episode, unspecified; F41.9 Anxiety disorder, unspecified; K21.9 Gastro-esophageal reflux disease without esophagitis; Z86.711 Personal history of pulmonary embolism; Z88.8 Allergy status to other drugs, medicaments and biological substances; Z79.899 Other long term (current) drug therapy
CPT/HCPCS: 36415; 80051; 80053; 82948; 83036; 85025; 85610; 85730; 87081; 94760; 97110; 97116; 97161; 97530; A4215; A6454; A7000; C1713; C1758; C1776; G0378; J0690; J1170; J1200; J1885; J2250; J2405; J2704; J2765; J2795; J3370; J3480; J7060; J7120

== ENCOUNTER 2021-11-13 08:58 | Outpatient (CLI) | payer MEDICARE, OTHER, MEDICAID ==
[2021-11-13] VITALS (8 sets, daily range): BP systolic 130–153; BP diastolic 52–68
[2021-11-13] MEDS ORDERED: atropine 0.1mg/ml 10ml syringe IV PRN (10:15)
[2021-11-13] MEDS ORDERED: nitroGLYCERIN 0.4mg SUBLingual tab SL PRN (10:15)
[2021-11-13] MEDS ORDERED: normal saline 500ml IV soln 500 ML IV ONE (10:15)
[2021-11-13] MEDS ORDERED: regadenoson 0.4mg/5ml syringe IV ONE (10:15)
[2021-11-13] MEDS ORDERED: metoprolol tartrate 1mg/ml inj IV PRN (10:15)
[2021-11-13] MEDS ORDERED: aminophylline 500mg/20ml vial IV PRN (10:15)
== END 2021-11-13 23:59 | disposition home or self-care (01) ==
LOC: RAD 08:58
PROVIDERS: ATTEND Internal Medicine Cardiovascular Disease
DX: R06.00 Dyspnea, unspecified (principal); R94.31 Abnormal electrocardiogram [ECG] [EKG]
CPT/HCPCS: 78452; 93017; A9500; J0280; J2785; J7040